=== PATIENT | female | born 1950 ===

== ENCOUNTER 2017-07-16 07:46 | Day surgery (SDC) | payer MEDICARE, OTHER ==
[2017-07-09 09:20] VITALS: BMI 34.3
[2017-07-16] MEDS ORDERED: Acetylcholine 1% Opth System Pack IO ONE (08:13)
[2017-07-16] MEDS ORDERED: Maxitrol Opht Susp ONE (08:13)
[2017-07-16] MEDS ORDERED: Tetracaine 0.5% Ophth 2 ML BOTTLE ONE (08:14)
[2017-07-16] MEDS ORDERED: EPINEPHrine 1 mg/ml (1:1000) Inj ONE (08:14)
[2017-07-16] MEDS ORDERED: Lidocaine 1% 20 MG/2 ML PF AMP ONE (08:14)
[2017-07-16] MEDS ORDERED: CA CL/K CL/NA CL 500 ML IR ONE (08:14)
[2017-07-16] MEDS ORDERED: Pilocarpine 1% Opht Soln ONE (08:14)
[2017-07-16] MEDS ORDERED: Povidone Iodine 5% Opht SOLUTION ONE (08:15)
[2017-07-16] MEDS ORDERED: BSS 15 ML 45 ML IR ONE (08:15)
[2017-07-16] MEDS ORDERED: Chondroitin/Hyaluronate Opth Syringe KIT (0.55 ml-0.5 ml) IO ONE (08:15)
[2017-07-16] MEDS ORDERED: Tropicamide 1% Opht 150 DROP/15 ML OS ONE ×2 (09:00)
[2017-07-16] MEDS ORDERED: Phenylephrine 2.5% Opht Soln OS ONE ×2 (09:00)
[2017-07-16] MEDS ORDERED: Lactated Ringer's 1,000 ML IV ONE (09:00)
[2017-07-16] MEDS ORDERED: Flurbiprofen 0.3% Opht SOLN OS ONE (09:00)
[2017-07-16] MEDS ORDERED: Midazolam 2 MG/2 ML VIAL ONE (10:23)
[2017-07-16] MEDS ORDERED: DiphenhydrAMINE 50 mg/ml Inj ONE (10:44)
[2017-07-16 12:42] VITALS: RESP 18
[2017-07-16 13:43] VITALS: BP 137/75; PULSE 95; TEMP 98.3; O2SAT 95
--- NOTE | 2017-07-17 11:08 | OP ---
PROCEDURE DATE: 07/16/2017 SURGEON: GERRY BOWMAN MD ANESTHESIOLOGIST: DILIP WARNER DO ANESTHESIA: LOCAL / IV SEDATION PREOPERATIVE DIAGNOSIS: CATARACT LEFT EYE. POSTOPERATIVE DIAGNOSIS: CATARACT LEFT EYE. OPERATION: CLEAR CORNEAL PHACOEMULSIFICATION WITH LENS IMPLANT LEFT EYE. PREPARATION AND PROCEDURE: After the patient was prepped and draped in the usual manner for sterile ophthalmic surgery, local IV sedation was administered ; eye seals were applied to the upper and lower lid margins and an adult wire lid speculum was placed within the lids. Under microsurgical control, a two- step clear corneal incision was made into the anterior chamber. The initial incision was perpendicular to the corneal plane. The second incision with the keratome was placed at a 45-degree angle to the first incision. One cc of one percent Xylocaine MPF was instilled into the anterior chamber to achieve proper intraocular anesthesia. At this time, the Viscoelastic was injected into the anterior chamber for protection of the endothelium and for maintenance of the chamber depth. A 360-degree continuous curvilinear capsulorrhexis was performed using a pre-bent 25-gauge needle. Hydrodissection and hydrodelineation were performed using a Bowles cannula and balanced salt solution. Utilizing the tip of the Bowles cannula, the nucleus was rotated freely within the capsular bag. A standard one-handed phacoemulsification was utilized at this time for sculpting and rotating of the nucleus. The nucleus was fragmented in its entirety and aspirated without any consequence. A standard I&A was carried out for the residual cortical material. No residual material was noted within the capsular bag. The posterior capsule was noted to be clear. Additional Viscoelastic was injected into the capsular bag in preparation for lens implantation. After this has been satisfactorily achieved the intraocular lens injected through the corneal incision into the capsular bag. The intraocular lens was manipulated until it was properly oriented and the Viscoelastic was evacuated from the capsular bag and anterior chamber. The anterior chamber was reformed with balanced salt solution. The corneal incision was irrigated with BSS. The intraocular pressure was found to be within normal limits. This terminated the procedure. The speculum and lid drapes were removed. TobraDex ophthalmic suspension and Pilocarpine 1% drops one drop was applied to the eye. POSTOPERATIVE CONDITION: The patient was brought to the Post anesthesia Recovery area with stable vital signs. DGERRY DOUGLAS MDD
== END 2017-07-16 15:14 | disposition home or self-care (01) ==
LOC: H.OPSURG 07:46
PROVIDERS: ATTEND Ophthalmology
DX: H25.811 Combined forms of age-related cataract, right eye (principal); I10 Essential (primary) hypertension; K21.9 Gastro-esophageal reflux disease without esophagitis
CPT/HCPCS: 66984; J0171; J1200; J2250; J2405; J3010; J7120; V2632

== ENCOUNTER 2017-07-30 07:26 | Day surgery (SDC) | payer MEDICARE, OTHER ==
[2017-07-09 08:30] VITALS: BMI 34.3
[2017-07-30] MEDS ORDERED: Tropicamide 1% Opht 150 DROP/15 ML OD SCH (08:45)
[2017-07-30] MEDS ORDERED: Phenylephrine 2.5% Opht Soln OD SCH (08:45)
[2017-07-30] MEDS ORDERED: Flurbiprofen 0.3% Opht SOLN OD SCH (08:45)
[2017-07-30] MEDS ORDERED: Phenylephrine 2.5% Opht Soln OD ONE (09:10)
[2017-07-30] MEDS ORDERED: Flurbiprofen 0.3% Opht SOLN OD ONE (09:10)
[2017-07-30] MEDS ORDERED: Tropicamide 1% Opht 150 DROP/15 ML OD ONE (09:10)
[2017-07-30] MEDS ORDERED: Lidocaine 1% 20 MG/2 ML PF AMP ONE (09:14)
[2017-07-30] MEDS ORDERED: Tetracaine 0.5% Ophth 2 ML BOTTLE ONE (09:14)
[2017-07-30] MEDS ORDERED: Acetylcholine 1% Opth System Pack IO ONE (09:14)
[2017-07-30] MEDS ORDERED: Maxitrol Opht Susp ONE (09:14)
[2017-07-30] MEDS ORDERED: EPINEPHrine 1 mg/ml (1:1000) Inj ONE (09:15)
[2017-07-30] MEDS ORDERED: Pilocarpine 1% Opht Soln ONE (09:15)
[2017-07-30] MEDS ORDERED: Chondroitin/Hyaluronate Opth Syringe KIT (0.55 ml-0.5 ml) IO ONE (09:15)
[2017-07-30] MEDS ORDERED: BSS 15 ML 45 ML IR ONE (09:15)
[2017-07-30] MEDS ORDERED: CA CL/K CL/NA CL 500 ML IR ONE (09:15)
[2017-07-30 09:18] VITALS: RESP 18
[2017-07-30] MEDS ORDERED: Lactated Ringer's 1,000 ML IV ONE ×4 (11:10)
[2017-07-30] MEDS ORDERED: Midazolam 2 MG/2 ML VIAL ONE (11:10)
[2017-07-30] MEDS ORDERED: BSS 15 ML SOL IR ONE (11:26)
[2017-07-30] MEDS ORDERED: Acetaminophen-Codeine 300/30 mg Tab PO STA (14:13)
[2017-07-30] MEDS ORDERED: Acetaminophen-Codeine 300/30 mg Tab PO ONE (14:40)
[2017-07-30 18:07] VITALS: BP 154/75; PULSE 77; TEMP 98.6; O2SAT 97
--- NOTE | 2017-08-01 08:09 | OP ---
PROCEDURE DATE : 07/30/2017 SURGEON: GERRY BOWMAN MD ANESTHESIOLOGIST: JASSI ANN MD ANESTHESIA: LOCAL / IV SEDATION PREOPERATIVE DIAGNOSIS: CATARACT RIGHT EYE. POSTOPERATIVE DIAGNOSIS: CATARACT RIGHT EYE. OPERATION: CATARACT EXTRACTION WITH A POSTERIOR LENS IMPLANT ( PHACOEMULSIFICATION) AND ANTERIOR VITRECTOMY RIGHT EYE. PREPARATION AND PROCEDURE: After facial akinesia and retrobulbar block were induced, the patient was prepped and draped in the usual manner for sterile ophthalmic surgery. An adult wire lid speculum was placed into the lid of the eye. A #4-0 silk suture was placed into the belly of the superior rectus muscle for fixation of the globe. A mini-peritomy at the 12 o'clock position was fashioned with a sharp tipped Paula scissor and atraumatic forceps. The fornix-based mini-peritomy was reflected superiorly and hemostasis was obtained with wet field bipolar cautery. A three-step incision was fashioned using a crescent blade, 2.5 mm posterior to the surgical sulcus. The anterior chamber was entered using the 3.2 blade. Viscoelastic was injected into the anterior chamber for protection of the cornea endothelium and maintenance of the anterior chamber depth. An anterior capsulotomy was performed in a capsular fashion using a pre-bent 25 gauge needle. After the capsulotomy was finished, hydrodissection and hydrodelamination was carried out. Using the Phaco- Emulsifier hand piece, phacoemulsification was carried out at this time. During phacoemulsification, a rent was noted in the posterior capsule with prolapse of syneretic vitreous into the anterior chamber. An anterior vitrectomy was carried out with the disposable Cavitron anterior vitrectomy hand piece, in addition to removal of the residual cortical material. At this time, the anterior chamber was checked for any residual vitreous strands and none were noted. A posterior chamber lens was then placed within the capsular bag. Miochol was injected into the anterior chamber for myosis and again the pupil was reexamined for any evidence of vitreous and none was noted. The Viscoelastic was evacuated from the anterior chamber using the irrigation and aspiration hand piece. Balanced salt solution was injected into the anterior chamber for reestablishment of the anterior chamber space. The wound again was checked for any leaks and none were noted. The conjunctiva was reflected superiorly up to the surgical sulcus. The #4-0 silk suture was removed and Maxitrol drops were applied to the eye and a light patch was then applied. POSTOPERATIVE CONDITION: The patient was brought to the Post anesthesia Recovery area with stable vital signs. GERRY BOWMAN MD
== END 2017-07-30 17:00 | disposition home or self-care (01) ==
LOC: H.OPSURG 07:26
PROVIDERS: ATTEND Ophthalmology
DX: H26.9 Unspecified cataract (principal); E11.9 Type 2 diabetes mellitus without complications; E78.5 Hyperlipidemia, unspecified; I10 Essential (primary) hypertension; M19.90 Unspecified osteoarthritis, unspecified site
CPT/HCPCS: 66984; 67005; J0171; J2250; J2405; J3010; J7120

== ENCOUNTER 2019-01-12 08:37 | Emergency (ER) | payer MEDICARE, OTHER ==
[2019-01-12 08:44] VITALS: BMI 35.3
[2019-01-12 08:46] VITALS: TEMP 97.9; O2SAT 96
--- NOTE | 2019-01-12 09:24 | ED PDOC ---
Lower Extremity Pain/Injury Additional Complaint(s): 68 yo female pt with PMH of HTN presents today to the ED c/o L buttock/hip pain since 3 months ago. Patient states she went her PMD who gave her muscle relaxants but pain has been worsening in the past few weeks. Pain is sharp, 5- 6/10, better with rest, radiating to lateral aspect of left thigh. She denies fever, chills, injury or trauma, no urinary sx , diarrhea and constipation. PMD: Dr Hankins Past Medical History Vital Signs: Last Vital Signs Temp 97.9 F 01/12/19 08:44 Pulse 103 H 01/12/19 08:44 Resp 17 01/12/19 08:44 BP 175/98 H 01/12/19 08:44 Pulse Ox 96 01/12/19 08:44 - Medical History PMH: Arthritis, Bronchitis (MAY 2017), HTN, Hypercholesterolemia Denies: Chronic Kidney Disease - Surgical History Surgical History: Tonsillectomy - Family History Family History: States: Unknown Family Hx - Home Medications Home Medications: Ambulatory Orders Medication Instructions Recorded Amlodipine Bes/Olmesartan Med 5 mg PO DAILY 02/09/15 [[place] 5 mg-20 mg] Aspirin [Aspirin Chewable] 81 mg PO DAILY 07/16/17 - Allergies Allergies/Adverse Reactions: Allergies Allergy/AdvReac Type Severity Reaction Status Date / Time No Known Allergies Allergy Verified 07/30/17 09:27 Review of Systems ROS Statement: Except As Marked, All Systems Reviewed And Found Negative Physical Exam - Physical Exam Appears: Positive for: No Acute Distress Head Exam: Positive for: NORMAL INSPECTION Skin: Positive for: Normal Color, Warm, Dry Eye Exam: Positive for: Normal appearance, EOMI, PERRL Neck: Positive for: Normal, Supple Cardiovascular/Chest: Positive for: Regular Rate, Rhythm, Tachycardia. Negative for: Murmur Respiratory: Positive for: Normal Breath Sounds. Negative for: Crackles, Rales, Wheezing Gastrointestinal/Abdominal: Positive for: Bowel Sounds, Soft. Negative for: Tenderness, Distended Extremity: Positive for: Normal ROM, Tenderness (left hip and lateral aspect of left thigh, no masses, redness or warm). Negative for: Deformity, Swelling Neurological/Psych: Positive for: Awake, Alert - ECG O2 Sat by Pulse Oximetry: 96 Medical Decision Making Medical Decision Making: L buttock/hip pain, DDx include Trochanteric bursitis, Ilitibial band syndrome, OA, arthritis Plan - L hp/pelvis x ray - Toradol IM once - Reeval 10:15 Patient feeling better, pain improved at this time, Xray negative for fracture, will discharge pt Disposition - Clinical Impression Clinical Impression: Sciatica, left side - Patient ED Disposition Is Patient to be Admitted: No - Disposition Disposition: Routine/Home Disposition Time: 10:45 Condition: IMPROVED Instructions: Sciatica (DC), Sciatica Exercises
--- NOTE | 2019-01-12 11:41 | RAD ---
PROCEDURE: Left Hip X-ray Radiographs. HISTORY: Pain. No history of recent/ related trauma provided. COMPARISON: None. TECHNIQUE: 2 views obtained. FINDINGS: BONES: Normal. No fracture. JOINTS: Normal. Incidental finding(s): Osteitis pubis. SOFT TISSUES: Normal. OTHER FINDINGS: None. IMPRESSION: No significant or acute findings to account for/ related to the clinical presentation. Additional benign and/or incidental findings described above.
[2019-01-12 13:22] VITALS: BP 150/92; PULSE 89; RESP 18
== END 2019-01-12 10:45 | disposition home or self-care (01) ==
LOC: H.ER 08:37
DX: M54.32 Sciatica, left side (principal)
CPT/HCPCS: 73501; 96372; 99283; J1885